=== PATIENT | female | born 1985 | race Two or more races ===

== ENCOUNTER 2023-08-19 16:59 | Day surgery (SDC) | payer BC ==
[2023-08-19 18:39] VITALS: BMI 24.7
[2023-08-19] MEDS ORDERED: hydrALAZINE 20 MG/ML VIAL SLOW IVP PRN (18:45)
[2023-08-19] MEDS ORDERED: Lactated Ringer's 1,000 ML IV SCH ×2 (18:45→20:45)
[2023-08-19 19:30] LABS: ALT (SGPT) 17 U/L (8-55); AST (SGOT) 20 U/L (5-34); Albumin 3.2 g/dL (3.5-5.0); Alkaline Phosphatase 140 U/L (40-110); Anion Gap 14 mmol/L (10-20); BUN (Urea Nitrogen) 11 mg/dL (7.0-18.7); Bilirubin, Total 0.2 mg/dL (0.2-1.2); Calc. Creatinine Clearance 103 mL/min (70-130); Calcium 8.8 mg/dL (7.8-10.44); Carbon Dioxide 19 mmol/L (22-29); Chloride 106 mmol/L (98-107); Estimated GFR 106; Globulin 2.9 g/dL (2.4-3.5); Glucose 71 mg/dL (70-105); Protein, Total 6.1 g/dL (6.0-8.3); Sodium 135 mmol/L (136-145)
[2023-08-19 19:38] LABS: Bilirubin Neg (Negative); Blood, Urine Negative (Negative); Clarity Clear (Clear); Glucose, Urine (Dipstick) Normal (Negative); Ketone, Urine 15 mg/dL (Negative); Leukocyte Negative (Negative); Nitrite Negative (Negative); Protein, Urine (Dipstick) Negative (Neg-Trace); Urobilinogen Normal mg/dL (Less than 2)
[2023-08-19 19:45] LABS: Bacteria/HPF 1+ HPF (None Seen); CAUTI Indications for Culture Pregnancy; RBC/HPF 0-3 HPF (0-3); Squamous Epithelial 0-3 HPF (0-3); WBC/HPF 0-3 HPF (0-3)
[2023-08-19 19:47] LABS: Urine Culture Reflex Yes Yes
[2023-08-19 20:17] LABS: FFN Internal QC Analyzer PASS (PASS); FFN Internal QC Cassette PASS (PASS); Fetal Fibronectin Negative (Negative)
== END 2023-08-19 21:15 | disposition home or self-care (01) ==
LOC: CSHLD/OP 16:59
PROVIDERS: ATTEND Obstetrics & Gynecology
DX: O09.813 Supervision of pregnancy resulting from assisted reproductive technology, third trimester (principal); O47.03 False labor before 37 completed weeks of gestation, third trimester; O09.523 Supervision of elderly multigravida, third trimester; O99.283 Endocrine, nutritional and metabolic diseases complicating pregnancy, third trimester; E03.9 Hypothyroidism, unspecified; O46.8X3 Other antepartum hemorrhage, third trimester; D56.3 Thalassemia minor; Z79.890 Hormone replacement therapy; Z79.899 Other long term (current) drug therapy; Z3A.33 33 weeks gestation of pregnancy
CPT/HCPCS: 36415; 76817; 80053; 81001; 82731; 87086; 87480; 87510; 87660

== ENCOUNTER 2023-10-05 20:43 | Inpatient (IN) | payer BC ==
[2023-10-05 20:59] VITALS: BMI 26.2
[2023-10-05] MEDS ORDERED: hydrALAZINE 20 MG/ML VIAL SLOW IVP PRN (21:20)
[2023-10-05] MEDS ORDERED: Lidocaine 1% (PF) 30 ML VIAL SC PRN (21:30)
[2023-10-05] MEDS ORDERED: Promethazine HCl 25 MG/ML VIAL IM PRN ×2 (21:30→23:42)
[2023-10-05] MEDS ORDERED: Carboprost 250 MCG/ML AMP IM PRN (21:30)
[2023-10-05] MEDS ORDERED: Tranexamic Acid 1,000 MG/10 ML VIAL IVP PRN (21:30)
[2023-10-05] MEDS ORDERED: Methylergonovine 0.2 MG/ML VIAL IM PRN (21:30)
[2023-10-05] MEDS ORDERED: Ondansetron PF 4 MG/2 ML Vial IVP PRN ×3 (21:30→23:42)
[2023-10-05] MEDS ORDERED: Oxytocin 30 units/NS 500 ML 500 ML IV SCH (21:30)
[2023-10-05] MEDS ORDERED: Misoprostol 200 MCG TAB PR PRN (21:30)
[2023-10-05] MEDS ORDERED: Ibuprofen 800 MG TAB PO PRN (21:30)
[2023-10-05] MEDS ORDERED: Lactated Ringer's 1,000 ML IV SCH (21:30)
[2023-10-05 21:48] LABS: Hematocrit 37.9 % (34.9-44.5); Hemoglobin 13.2 g/dL (12.0-15.5); Mean Corpuscular HGB CONC 34.8 g/dL (32.0-36.0); Mean Corpuscular Hemoglobin 27.5 pg (27.0-33.0); Mean Platelet Volume 12.5 fl (7.4-10.4); Platelet Count 200 10x3/uL (150-450); RBC Distribution Width 13.9 % (11.5-14.5); White Blood Cell (WBC) Count 10.3 10x3/uL (3.5-10.5)
[2023-10-05] MEDS: Terbutaline Sulfate 1 MG/ML VIAL ONE (21:56)
[2023-10-05 22:41] LABS: HBSAg Index 0.29 S/CO (0-0.99); Hep B Surf Ag - L&D Non-Reactive S/CO (NonReactive)
[2023-10-05 22:43] LABS: Syphilis Antibody Nonreactive (Nonreactive); Syphilis Antibody Index 0.06 S/CO (<1.00 Non-Reactive)
[2023-10-05 23:18] LABS: Analyzer IN Cardio CS NICU; Critical Notified By: CP.PH; Critical Notified Whom: NUR.CSI5; RapidComm Collect By CBN
[2023-10-05 23:19] LABS: Analyzer IN Cardio CS NICU; Critical Notified By: CP.PH; Critical Notified Whom: NUR.CSI5; RapidComm Collect By CBN
[2023-10-05] MEDS ORDERED: diphenhydrAMINE 50 MG/ML VIAL IVP PRN (23:42)
[2023-10-05] MEDS ORDERED: Ketorolac Tromethamine 30 MG (1 mL) VIAL IVP PRN (23:42)
[2023-10-05] MEDS ORDERED: fentaNYL 50 mcg/mL 1 mL Vial SLOW IVP PRN (23:42)
[2023-10-05] MEDS ORDERED: Moisturizing Cream (Eucerin) 113 GM JAR TOP PRN (23:42)
[2023-10-05] MEDS ORDERED: Naloxone HCl 0.4 mg/ml Vial IVP PRN ×2 (23:42)
[2023-10-05] MEDS ORDERED: Promethazine HCl 25 MG SUPP PR PRN (23:42)
[2023-10-05] MEDS ORDERED: Meperidine HCl/PF 25 MG (1 mL) VIAL SLOW IVP PRN (23:42)
[2023-10-05] MEDS ORDERED: Naloxone HCl 0.4 mg/ml Vial IV PRN (23:42)
[2023-10-05] MEDS ORDERED: Ketorolac Tromethamine 30 MG (1 mL) VIAL IVP SCH (23:45)
[2023-10-05] MEDS ORDERED: Communication Order-Pharmacy FS SCH (23:45)
[2023-10-06] MEDS ORDERED: Simethicone Chewable 80 MG TAB PO PRN (03:03)
[2023-10-06] MEDS ORDERED: Lanolin Ointment 7 GM TUBE TOP PRN (03:03)
[2023-10-06] MEDS ORDERED: Misoprostol 200 MCG TAB PR PRN (03:03)
[2023-10-06] MEDS ORDERED: Oxytocin 30 units/NS 500 ML 500 ML IV SCH (03:03)
[2023-10-06] MEDS ORDERED: Ondansetron PF 4 MG/2 ML Vial IVP PRN (03:03)
[2023-10-06] MEDS ORDERED: hydrALAZINE 20 MG/ML VIAL SLOW IVP PRN (03:03)
[2023-10-06] MEDS: Dexamethasone 4 mg/ml Vial ONE (03:22)
[2023-10-06] MEDS: CEFAZOLIN 2 GM VIAL ONE (03:22)
[2023-10-06] MEDS: Oxytocin 10 UNITS/ML VIAL ONE (03:22)
[2023-10-06] MEDS: PHENYLEPHRINE-NS 100 MCG/ML 10 ML SYRINGE ONE (03:22)
[2023-10-06] MEDS: Lactated Ringer's 1,000 ML IV SCH ×2 (03:22→03:23)
[2023-10-06] MEDS: Ondansetron PF 4 MG/2 ML Vial ONE (03:22)
[2023-10-06] MEDS: Morphine PF 10 MG/10 ML VIAL ONE (03:22)
[2023-10-06 04:30] LABS: Hematocrit 34.8 % (34.9-44.5); Hemoglobin 11.7 g/dL (12.0-15.5); Mean Corpuscular HGB CONC 33.6 g/dL (32.0-36.0); Mean Corpuscular Volume 80.2 fl (81.6-98.3); Platelet Count 195 10x3/uL (150-450); RBC Distribution Width 13.7 % (11.5-14.5); Red Blood Cell (RBC) Count 4.34 10x6/uL (3.90-5.03); White Blood Cell (WBC) Count 9.6 10x3/uL (3.5-10.5)
[2023-10-06] MEDS: Ketorolac Tromethamine 30 MG (1 mL) VIAL IVP SCH (04:41)
[2023-10-06] MEDS: Levothyroxine Sodium 75 MCG TAB PO SCH ×2 (05:56→10:19)
[2023-10-06] MEDS ORDERED: Ibuprofen 800 MG TAB PO SCH (06:00)
[2023-10-06] MEDS: Ferrous Sulfate 325 MG TAB PO SCH (07:22)
[2023-10-06] MEDS: Docusate 100 MG CAP PO SCH (08:20)
[2023-10-06] MEDS: Polyethylene Glycol 3350 17 GM Packet PO SCH (08:20)
[2023-10-06] MEDS: Prenatal Vitamin 1 TAB PO SCH (08:20)
[2023-10-06] MEDS: Ibuprofen 800 MG TAB PO SCH (10:20)
[2023-10-06] MEDS ORDERED: HYDROcodone/Acetaminophen 5/325 mg Tablet PO PRN ×2 (11:45)
[2023-10-06] MEDS: Acetaminophen 500 MG TAB PO PRN (17:11)
[2023-10-08 04:19] VITALS: TEMP 98.1
[2023-10-08] MEDS: Boostrix 0.5 ML (Tdap) VIAL (>/=7 yrs of age) IM ONE (07:26)
[2023-10-08 08:21] VITALS: BP 123/89
== END 2023-10-08 17:01 | disposition home or self-care (01) | DRG 788 ==
LOC: CSHLD/OP 20:43 → CSHLD 22:24 → CSHPP 10-06 02:35
PROVIDERS: ADMIT Family Medicine; ATTEND Family Medicine
PROC: 10D00Z1 Extraction of Products of Conception, Low, Open Approach (ICD-10-PCS; principal; 2023-10-05)
DX: O76 Abnormality in fetal heart rate and rhythm complicating labor and delivery (principal); Z3A.40 40 weeks gestation of pregnancy; O48.0 Post-term pregnancy; Z37.0 Single live birth; O09.523 Supervision of elderly multigravida, third trimester; O99.284 Endocrine, nutritional and metabolic diseases complicating childbirth; N80.9 Endometriosis, unspecified; D56.3 Thalassemia minor
CPT/HCPCS: 36415; 51702; 82805; 85027; 86780; 86850; 86900; 86901; 87340; 88307; 99285; J1100; J1885; J2274; J2405; J2590; J3105